=== PATIENT | male | born 1980 | race Two or more races ===

== ENCOUNTER 2018-12-20 20:50 | Emergency (ER) | payer OTHER ==
[~2018-12-20] VITALS: Ht 188 cm; Wt 79.4 kg
[2018-12-20 21:22] VITALS: BP 103/64
--- NOTE | 2018-12-20 21:46 | Emergency Room Report ---
History of Present Illness General Chief Complaint: Medical Clearance Source: Patient Present Illness HPI Patient is a 38-year-old male who presented for medical clearance due to incarceration.. Patient reports having injury to his right upper extremity and states that his hand was injured by broken glass approximately 6 AM. Patient reports putting a tape over the finger. Patient is right-hand dominant. He denies current employment. Patient states that he has never had tetanus vaccine and refuses current tetanus vaccine. Allergies: Coded Allergies: No Known Allergies (Unverified , 12/20/18) Patient History Past Medical History: see triage record Reviewed Nursing Documentation: PMH: Agreed; PSxH: Agreed Nursing Documentation-PMH Past Medical History: No Stated History Review of Systems All Other Systems: negative except mentioned in HPI Physical Exam Vital Signs Date Time Temp Pulse Resp B/P (MAP) Pulse Ox O2 Delivery O2 Flow Rate FiO2 12/20/18 20:52 97.5 62 16 103/64 (77) 98 Room Air General Appearance: well appearing, no apparent distress, alert, GCS 15, non- toxic Head: normocephalic, atraumatic ENT: hearing grossly normal, normal voice Neck: full range of motion, supple Respiratory: chest non-tender, lungs clear, normal breath sounds, no respiratory distress, speaking full sentences Cardiovascular #1: normal inspection Gastrointestinal: normal inspection, non tender Musculoskeletal: other - right small finger laceration flap, laceration to distal phalanx of small finger Neurologic: normal inspection, alert, oriented x3, responsive, front desk associate III-XII nml as tested Psychiatric: mood/affect normal Skin: no rash, laceration Medical Decision Making Diagnostic Impression: Primary Impression: Laceration ER Course Patient presented for laceration. Differential diagnosis include was not limited to foreign body, fracture, delayed presentation among others. Patient has a benign exam and does not appear to require any laboratory testing at this time. Patient refused tetanus vaccine. Patient laceration appears to be old and would likely get infected if sutured. Patient be discharged to police custody. He will require oral antibiotics due to open laceration. Last Vital Signs Date Time Temp Pulse Resp B/P (MAP) Pulse Ox O2 Delivery O2 Flow Rate FiO2 12/20/18 21:22 97.5 78 16 103/64 98 Room Air Status: improved Disposition: D/C TO LAW ENFORCEMENT IN [facility]UST Condition: Stable Referrals: NOT CHOSEN IPA/,REFERRING (PCP) Festus Dudley MD Dec 20, 2018 21:46
[2018-12-20] MEDS ORDERED: CEPHALEXIN500 MG ORAL (21:50)
[2018-12-20] MEDS ORDERED: IBUPROFEN600 MG ORAL (21:50)
[2018-12-20] MEDS: Lidocaine HCl 2% Jelly 6ml Tube TOPIC ONE (21:55)
[2018-12-20 22:55] VITALS: BP 103/64
--- NOTE | 2018-12-21 10:55 | Diagnostic Imaging Report ---
Indication: Right hand pain Findings: 3 views of the right hand were obtained. Normal bony mineralization and alignment are demonstrated. No acute fractures, erosions, or periosteal reaction are seen. Soft tissues are unremarkable. Impression: No acute findings.
== END 2018-12-20 22:55 ==
LOC: EMR 21:35
DX: S61.216A Laceration without foreign body of right little finger without damage to nail, initial encounter (principal); W26.8XXA Contact with other sharp object(s), not elsewhere classified, initial encounter; Y92.89 Other specified places as the place of occurrence of the external cause
CPT/HCPCS: 99283